=== PATIENT | female | born 1960 | race Caucasian/White ===

== ENCOUNTER 2016-07-10 07:50 | Day surgery (SDC) | payer OTHER ==
[2016-07-10] VITALS (10 sets, daily range): BP systolic 123–164; BP diastolic 60–102; PULSE 56–76; RESP 10–20; O2SAT 92–100
[~2016-07-10] VITALS: Ht 162.6 cm; Wt 99.0 kg
[~2016-07-10 07:50] MED LIST: CeFAZolin 2 Gm/50 mL D5W IV Premix IV ONE; LEVO50TA6 PO; Lactated Ringer's 1,000 ML IV SCH; NPR500T PO
[2016-07-10] MEDS ORDERED: Propofol 10,000 mCg/mL 20 mL Inj ONE (07:51)
[2016-07-10] MEDS ORDERED: fentaNYL-PF 50 mCg/mL 2 mL Inj ONE (07:51)
[2016-07-10] MEDS ORDERED: Dexamethasone 4 mg/mL Inj ONE (07:51)
[2016-07-10] MEDS ORDERED: Ondansetron 2 mg/mL 2 mL Inj ONE (07:51)
[2016-07-10] MEDS ORDERED: Lactated Ringer's 1,000 ML IV ONE (08:48)
--- NOTE | 2016-07-10 09:11 | PCM.HPANE ---
Patient Data Surgeon Admitting Provider: Attending Provider:Tylor Scott MD Primary Care Physician:Martha Anand PA-C Other Provider:Sharri Rodriguezingham Anesthesia Reason for Visit Right Knee Medial Meniscal Tear Ht/WT & BMI Height (Feet): 5 Height (Inches): 4.00 Weight (Kilograms): 99 Body Mass Index 37.00 Allergies Coded Allergies: codeine (Verified Adverse Reaction, Severe, Nausea,Vomiting, 07/05/16) morphine (Verified Adverse Reaction, Severe, Nausea,Vomiting, 07/05/16) oxycodone (Verified Adverse Reaction, Severe, Nausea,Vomiting, 07/05/16) Past Anesthesia History Anesthesia History: Positive for:: Anesthesia Reactions (PONV W/ NARCOTICS), Denies:: Malignant Hyperthermia Diabetes History Hx Diabetes?: No MRSA MRSA: No Medications Home Meds Incl Beta Kacey: No Reported Medications Naproxen 500 Mg [id number] Mg PO DAILY PRN For Pain Ref 0 07/05/16 Levothyroxine 50 Mcg [id number] Mcg PO DAILY Ref 0 02/14/16 Discontinued Reported Medications [Vit B12] No Conflict Check1 Gtt PO DAILY 02/14/16 Biotin/Calcium Carbonate (Biotin 800 Mcg Tablet)1 Each Tablet1 Each PO BID 02/14/16 Multivits,Ca,Minerals/Iron/FA (Women's Daily Formula Caplet)500-18-0.4 Tablet1 Each PO BID 02/14/16 History History of ENT Problems?: No HEENT History: Denies:: Sinus Problem Hx of Heart Problems?: Yes Cardiovascular History: Denies:: Chest Pain Heart Murmur Hypertension Pacemaker Rheumatic Fever Thrombophlebitis Other Cardiac History: HX OF ANEMIA (PROB. R/T MENORRHAGIA) Hx of Respiratory Problem?: No Respiratory History: Denies:: Asthma COPD Dyspnea Emphysema Hemoptysis Tuberculosis Use of C-PAP Machine Hx Neurologic Problems?: Yes Neurological History: Denies:: Alzheimer's Disease CVA Dementia Dizziness Headaches Seizures Hx of GI Problems?: Yes Gastrointestinal History: Denies:: Cirrhosis Diverticulitis Gastroesphageal Reflux Heartburn Hepatitis Rectal Bleeding Other GI Pertinent History: RECENT INTENTIONAL 60# WEIGHT LOSS Hx of Problems?: No Genitourinary History: Denies:: HX of Hemodialysis Kidney Stones Urinary Tract Infection Female Hx: Denies:: Currently Endometriosis Pelvic Inflammatory Problems with Breasts? Skin History: Denies:: History Skin Disorders? Pressure Ulcers Hx Musculoskeletal Problems?: Yes Musculoskeletal History: Positive for:: Musculoskeletal Trauma (RT KNEE MEDIAL MENISCUS TEAR=CURRENT PROBLEM) Denies:: Back Injury Joint Replacement Hx of Psycho/Social Problems?: No Psycho Social History: Denies:: Anxiety Bipolar Disorder Hx Depression Hx Surgeries?: Yes (HYST/BSO) Hx Any Other Health Problems?: Yes Other History: Positive for:: Cancer (UTERINE CA) Hospitalization Thyroid Disease Denies:: Endocrine Disease Hx Diabetes: No Hx Alcohol Use: YesHx Substance Use: No Smoking Status: Never Smoker Have You Smoked inLast 12 mo: No Stop/Bang S-Snoring: Do You Snore Loudly: No T-Tired: feel tired, fatigued: Yes O-Obsered: Observed not breath: No P-Blood Pressure: treated: No B- Body Mass Index > 35 kg/m2: Yes A- Age over 50: Yes N- Neck Large Circumference: Yes G- Gender Male: No SEEMA Total Score: 4 SEEMA Risk Assessment: High Risk, =/>3 Yes SEEMA Category 2: Yes Risk Assessment Category Category 1A: Patient has history of documented sleep apnea, and HAS NOT received any narcotic, sedative or anesthesia administration during this stay. Category 1B: Patient has history of documented sleep apnea, and HAS received any narcotic , sedative or anesthesia administration during this stay Category 2: Patient has SUSPECTED Obstructive Sleep Apnea, and HAS received any narcotic , sedative or anesthesia administration during this stay. Category 3: Patient has SUSPECTED Obstructive Sleep Apnea and HAS NOT received narcotic, sedative or anesthesia administration during this stay. Category 4: Outpatient in Procedural Areas with known sleep apnea or who screen positive for High Risk via the STOP/BANG questionnaire. Exam Exam Vital Signs Vital Signs Date Time Temp Pulse Resp B/P Pulse Ox O2 Delivery O2 Flow Rate FiO2 07/10/16 08:49 36.5 56 20 140/86 99 Room Air General Appearance: Alert, Oriented X3, Cooperative, No Acute Distress HEENT/AIRWAY: MP 2 Lungs: Clear to Auscultation, Normal Air Movement Heart: Exam Unremarkable, Regular Rate/Rhythm, No Murmurs/Rubs/Gallops Meds/Labs/Diagnostics Admission Meds Current Medications Lactated Ringer's (Lr) 1,000 ml @ ud STK-MED ONCE IV Last administered on 2/1/ 17at 08:48; Start 07/10/16 at 08:48; Stop 07/10/16 at 08:49; Status DC Plan Impression Patient chart reviewed, patient interviewed and anesthestic plan with risks, benefits, and alternatives discussed, and informed consent obtained. NPO Status: 07/09@1999 ASA Physical Status: ASA2 Mod Systemic Disease Anesthetic Plan: GA Bene/Risks/Altern/Consents: Yes HP Complete Prior to Induction: Yes Víctor Plascencia MD Jul 10, 2016 09:11
[2016-07-10] MEDS ORDERED: MethylprednisoLONE Depot 40 mg/mL Inj ARTICULAR ONE (10:17)
[2016-07-10] MEDS ORDERED: Lidocaine 2%-Epi 1:100,000 20 mL Inj INFILTRATE ONE (10:17)
[2016-07-10] MEDS ORDERED: Dexamethasone 4 mg/mL Inj IVPUSH PRN (10:35)
[2016-07-10] MEDS ORDERED: MetoCLOpramide 5 mg/mL 2 mL Inj IVPUSH PRN (10:35)
[2016-07-10] MEDS ORDERED: Ondansetron 2 mg/mL 2 mL Inj IVPUSH PRN (10:35)
[2016-07-10] MEDS ORDERED: Lactated Ringer's 500 ML IV PRN (10:35)
[2016-07-10] MEDS ORDERED: Atropine 0.4 mg/mL Inj IVPUSH PRN (10:35)
[2016-07-10] MEDS ORDERED: hydrALAZINE 20 mg/mL Inj IVPUSH PRN (10:35)
[2016-07-10] MEDS ORDERED: Lactated Ringer's 1,000 ML IV SCH (10:35)
[2016-07-10] MEDS ORDERED: EPHEDrine Sulfate 50 mg/mL Inj IVPUSH PRN (10:35)
[2016-07-10] MEDS ORDERED: HYDROmorphone 1 mg/mL Inj IVPUSH PRN (10:35)
[2016-07-10] MEDS ORDERED: Phenylephrine 10,000 mCg/mL Inj IVPUSH PRN (10:35)
[2016-07-10] MEDS ORDERED: fentaNYL-PF 50 mCg/mL 2 mL Inj IVPUSH PRN (10:35)
[2016-07-10] MEDS ORDERED: Labetalol 5 mg/mL 4 mL Inj IV PRN (10:35)
[2016-07-10] MEDS ORDERED: HYDROcodone-APAP 5-325 mg Tablet PO PRN (10:55)
--- NOTE | 2016-07-10 10:59 | PCM.ORTHOB ---
Immediate Operative Note Date of Service: Jul 10, 2016 Pre Operative Diagnosis Right knee degenerative medial meniscal tear Post Operative Diagnosis Same Procedure Right knee arthroscopic partial medial meniscectomy Surgeon Surgeon: Tylor Scott MD Assistants: None Findings Right knee medial compartment stable degenerative tear of the posterior horn of the medial meniscus. In their periphery tearing of the medial meniscal body. Degenerative changes on both sides of the joint with diffuse grade 3 chondromalacia affecting the majority of the weightbearing surface of the medial femoral condyle. Diffuse grade 2 chondromalacia affecting the majority of the weightbearing surface on the tibial side. The anterior cruciate ligament was intact and stable to probing. The lateral compartment was better preserved with an intact and normal appearing lateral meniscus which was stable to probing. Diffuse grade 1-2 chondromalacia affecting the majority of the weightbearing surface of the lateral femoral condyle. Diffuse grade 1 chondromalacia affecting the majority of the weightbearing surface on the tibial side. The medial and lateral gutters were free of loose bodies. The patellofemoral compartment was remarkable for diffuse grade 2-3 chondromalacia affecting the majority of the undersurface. Grafts, Implants: None Complications There were no periprocedural complications identified. Condition Stable Anesthetic Administered: GA Drains: None (I usually get a prescription) Catheters: None ( LCu) Output, Estimated Blood Loss: 2 Blood Admin during surgery: No Surgical Cast or Splint: None Additional Information Tourniquet time 20 minutes Surgical Specimen Removed: No Surgical Specimen sent to Path: No Post Operative Plan The patient will be discharged from daycare surgery with protocol is met. The patient may weight-bear as tolerated beginning postop day #1. The patient should resume her preoperative knee strengthening exercises as soon as possible. The patient will be seen for routine wound check on her after postop day #5. The patient may have her skin sutures removed on or after postoperative day #12. The patient should be able to resume light activities of daily living by that time. Tylor Scott MD Jul 10, 2016 10:59
--- NOTE | 2016-07-10 11:05 | PCM.ORTHOP ---
Orthopedic Operative Report Date of Service: Jul 10, 2016 Pre Operative Diagnosis Right knee degenerative medial meniscal tear Post Operative Diagnosis Same Procedure Right knee arthroscopic partial medial meniscectomy Surgeon Surgeon: Tylor Scott MD Assistants: None Indication for Procedure Patient is a 56-year-old woman with a four-month history of right knee pain primarily over the anteromedial aspect of her knee. Symptoms are worse with squatting, lunging, turning and twisting activities. The patient's symptoms are primarily activity related. Preoperative exam of the patient's right knee reveals the knee to be stable with mild loss of knee range of motion, tenderness to palpation of the medial joint line and a positive Billy test. Preoperative MRI of the patient's right knee is remarkable for an apparent degenerative tear in the posterior horn of the undersurface of the medial meniscus and mild tricompartmental degenerative changes. Patient has not gotten relief of her knee symptoms through activity modification, and appropriate attempt at knee rehabilitation and the use of anti-inflammatory agents. The patient presents for a temporizing right knee arthroscopic partial medial meniscectomy procedure. Findings Right knee medial compartment stable degenerative tear of the posterior horn of the medial meniscus. In their periphery tearing of the medial meniscal body. Degenerative changes on both sides of the joint with diffuse grade 3 chondromalacia affecting the majority of the weightbearing surface of the medial femoral condyle. Diffuse grade 2 chondromalacia affecting the majority of the weightbearing surface on the tibial side. The anterior cruciate ligament was intact and stable to probing. The lateral compartment was better preserved with an intact and normal appearing lateral meniscus which was stable to probing. Diffuse grade 1-2 chondromalacia affecting the majority of the weightbearing surface of the lateral femoral condyle. Diffuse grade 1 chondromalacia affecting the majority of the weightbearing surface on the tibial side. The medial and lateral gutters were free of loose bodies. The patellofemoral compartment was remarkable for diffuse grade 2-3 chondromalacia affecting the majority of the undersurface. Details of Procedure The patient was brought to the OR and given a general anesthetic. She is placed in the supine position and the tourniquet was placed high about the right thigh. The right lower extremity was prepped draped in usual sterile fashion. The tourniquet was inflated to 275 mmHg. We placed 2 infrapatellar portals, one medial and one lateral for the scope and instruments. We instilled lactated Ringer's with epinephrine and went directly to the medial compartment. We encountered advancing degenerative changes, primarily affecting the weightbearing surface of medial femoral condyle. We carefully examined the medial meniscus and found the undersurface of the posterior horn to be intact and stable to probing. We noted degenerative tearing and fraying of the inner periphery of the medial meniscal body. We used an arthroscopic shaver to debride the torn portion of the medial meniscus back to a stable base. We will see his D arthroscopic shaver to debride the more loose cartilaginous fragments from the medial femoral condyle and tibial articular surface. After we had performed our medial compartment partial medial meniscectomy and chondroplasty we explored the rest of the knee. We found the anterior cruciate ligament to be intact and stable to probing. The lateral compartment was better preserved with minimal degenerative changes primarily affecting the weightbearing surface of the lateral femoral condyle. The lateral meniscus was intact and stable to probing. We explored the medial and lateral gutters and found them to be free of loose bodies. The patellofemoral compartment was reviewed. We found advancing degenerative changes of the patellar undersurface and used our arthroscopic shaver to debride the more loose cartilaginous fragments from the patellar undersurface. Following our patellofemoral compartment chondroplasty we thoroughly irrigated the knee. We removed the scope and instruments and instilled 30 mL of 2% lidocaine with epinephrine and 40 mg of Depo-Medrol. The arthroscopic portals were closed with interrupted 4-0 nylon sutures. The wounds dressed with Xeroform and dry gauze dressings. The tourniquet was deflated and the patient was taken back to PACU in stable and satisfactory condition. There were no complications. The patient tolerated the procedure well. Grafts, Implants: None Complications There were no periprocedural complications identified. Condition Stable Anesthetic Administered: GA Drains: None (I usually get a prescription) Catheters: None ( LCu) Output, Estimated Blood Loss: 2 Blood Admin during surgery: No Surgical Cast or Splint: None Addtional Information Tourniquet time 20 minutes Surgical Specimen Removed: No Specimen sent to Pathology: No Post Operative Plan The patient will be discharged from daycare surgery with protocol is met. The patient may weight-bear as tolerated beginning postop day #1. The patient should resume her preoperative knee strengthening exercises as soon as possible. The patient will be seen for routine wound check on her after postop day #5. The patient may have her skin sutures removed on or after postoperative day #12. The patient should be able to resume light activities of daily living by that time. copies to: Martha Anand PA-C; Tylor Scott MD, Michael G.E MD Jul 10, 2016 11:05
--- NOTE | 2016-07-10 11:28 | PCM.ANEP1 ---
Post Anesthesia Phase 1 PACU Phase 1 Assessment Date of Service: Jul 10, 2016 Vital Signs Vital Signs Date Time Temp Pulse Resp B/P Pulse Ox O2 Delivery O2 Flow Rate FiO2 07/10/16 11:00 62 12 164/85 100 Room Air 07/10/16 10:55 65 13 162/79 99 Room Air 07/10/16 10:50 76 10 163/60 98 Room Air 07/10/16 10:47 36.3 64 11 123/82 92 Room Air 07/10/16 08:49 36.5 56 20 140/86 99 Room Air Anesthetic Administered: GA CRUZ's with Equal Strength: Yes Pain: No Nausea or Vomiting: No Oxygen Delivery: Room Air Lungs: Clear to Auscultation, Normal Air Movement Dermatome Level: Full Sensation Víctor Plascencia MD Jul 10, 2016 11:28
--- NOTE | 2016-07-10 11:50 | PCM.ANEP2 ---
Post Anesthesia Evaluation ASA/CMS Post Anesthesia VS in Patient's Normal Range?: Yes Resp Stable; Airway Patent?: Yes CV Function & Hydration Stable: Yes Mental Status Recovered?: Yes Pain control Satisfactory?: Yes N/V Control Satisfactory?: Yes Víctor Plascencia MD Jul 10, 2016 11:50
== END 2016-07-10 23:59 | disposition home or self-care (01) ==
LOC: SAS 07:50
PROVIDERS: ATTEND Orthopaedic Surgery
DX: M23.221 Derangement of posterior horn of medial meniscus due to old tear or injury, right knee (principal); M22.41 Chondromalacia patellae, right knee; M17.11 Unilateral primary osteoarthritis, right knee; E03.9 Hypothyroidism, unspecified
CPT/HCPCS: 29881; J0690; J1030; J1100; J2175; J2250; J2405; J3010; J7120

== ENCOUNTER 2016-07-16 09:46 | Emergency (ER) | payer OTHER ==
[~2016-07-16] VITALS: Ht 162.6 cm; Wt 96.4 kg
[~2016-07-16 09:46] MED LIST changes: -CeFAZolin 2 Gm/50 mL D5W IV Premix IV ONE; -Lactated Ringer's 1,000 ML IV SCH
[2016-07-16 09:57] VITALS: BP 127/88; PULSE 66; RESP 18; O2SAT 99
--- NOTE | 2016-07-16 10:05 | ED.REPORT ---
HPI-Extremity Problem Lower Date of Service Jul 16, 2016 ED Provider: Ty Darling MD The patient is a 56 year old female who was sent to the emergency department from [facility] orthopedics for right calf pain. She had a scope of her right knee on the , had a followup appt today and provider was concerned for DVT. The patient is ambulatory and did not notice pain until her appointment today. She denies history of blood clots. Nursing Notes Stated Complaint: LEG PAIN Chief Complaint: Extremity Trauma Nursing Notes Reviewed: Yes Allergies: Coded Allergies: codeine (Verified Adverse Reaction, Severe, Nausea,Vomiting, 07/05/16) morphine (Verified Adverse Reaction, Severe, Nausea,Vomiting, 07/05/16) oxycodone (Verified Adverse Reaction, Severe, Nausea,Vomiting, 07/05/16) Scheduled Levothyroxine (Levothyroxine) 50 Mcg Tablet 50 MCG PO DAILY Scheduled PRN Naproxen (Naproxen) 500 Mg Tab 500 MG PO DAILY PRN PRN For Pain General Time Seen by MD: 10:04 Chief Complaint Leg injury right Hx Obtained From: Patient Arrived By: Walk-in Onset Occurred: 3 days ago Symptom Duration: Since onset Location: : Leg right Quality: Painful Severity: Current: Mild Severity: Maximum: Moderate Recent Healthcare: No recent hospitalization, Recent doctor visit, Previous surgery (right knee surgery) Similar Sx Previous: No Past Medical History Past Surgical History Right knee surgery Family History Noncontributory Smoking History Never Smoker Social History Other Social History: Good social support, Local resident Ambulatory Status Independent Review of Systems Musculoskeletal: Reports: Extremity pain, Extremity swelling, Joint pain, Joint swelling Complete sys rev & neg: except as marked. Physical Exam Initial Vital Signs Vital Signs (First) Date Time Temp Pulse Resp B/P Pulse Ox O2 Delivery O2 Flow Rate FiO2 07/16/16 09:57 36.1 66 18 127/88 99 07/16/16 12:41 Room Air Initial VS: Reviewed General/Constitutional: Well-developed, Well-nourished Head / Eyes: Atraumatic, Normocephalic, PERRL ENT: Mucous membranes moist, Conjunctiva normal, No scleral icterus Neck: Supple, Non-tender, Full range of motion Respiratory: Breath sounds normal, Clear to auscultation, No respiratory distress Cardiovascular: Regular rate & rhythm, Heart sounds normal, Intact distal pulses Abdomen / GI: Soft, Non-tender, No guarding, No rebound, No distention Lymphatic: No lymphadenopathy Upper Extremities: Vascular intact, Neuro intact, No swelling, No tenderness Skin: Warm, Dry, No cyanosis Neurologic: Alert, Oriented, Nonfocal Psychiatric: Mood/affect normal, Behavior normal, Normal thought content Lower Extremity / Pelvis / MS: Neurologic intact, Vascular intact She has two well healing laparoscopic surgical incisions about her anterior knee. No surrounding erythema, redness, warmth, or any signs of infection. Her left calf is soft with no swelling or tenderness. Her right calf is soft without palpable cords or significant swelling. I am not able to detect any tenderness about her calf. Interpretation & Diagnostics Interpretation & Diagnostics: US negative for DVT Lab Results Interpretation Result Diagram: 07/16/16 1055 07/16/16 1055 Test 07/16/16 10:55 White Blood Count 9.1th/mm3 (3.8-10.1) Red Blood Count 4.95mil/mm3 (3.90-5.20) Hemoglobin 14.8g/dL (12.0-15.6) Hematocrit 44.5% (35.0-46.0) Mean Corpuscular Volume 89.9fL (81-100) Mean Corpuscular Hemoglobin 29.9pg (27.0-35.0) Mean Corpuscular Hemoglobin Concent 33.3% (32.0-37.0) Red Cell Distribution Width 13.6% (12.3-15.4) Platelet Count 274bil/L (150-400) Neutrophils (%) (Auto) 67.8% (40-74) Lymphocytes (%) (Auto) 19.4% (14-46) Monocytes (%) (Auto) 8.8% (4-12) Eosinophils (%) (Auto) 3.0% (0-5) Basophils (%) (Auto) 0.4% (0-3) Prothrombin Time 10.3sec (8.1-12.5) Prothromb Time International Ratio 0.96ratio Sodium Level 139mEq/L (134-144) Potassium Level 4.0mEq/L (3.5-5.2) Chloride Level 102mEq/L (97-108) Carbon Dioxide Level 24mmol/L (18-29) Blood Urea Nitrogen 21mg/dL (6-24) Creatinine 0.69mg/dL (0.57-1.00) Estimat Glomerular Filtration Rate 126mL/min (>59) Glucose Level 111mg/dL (60-99) Calcium Level 9.5mg/dL (8.5-10.1) Total Bilirubin 0.2mg/dL (0.0-1.2) Aspartate Amino Transf (AST/SGOT) 15U/L (0-50) Alanine Aminotransferase (ALT/SGPT) 16U/L (0-32) Alkaline Phosphatase 67U/L (25-150) Total Protein 8.0g/dL (6.4-8.4) Albumin 4.2g/dL (3.4-5.0) Hold Pandey Top Tube Received (Received) Re-Eval/Medical Decision Med Decision/Clinical Course In summary, the patient is a 56-year-old female without any history of DVT with recent arthroscopic right knee surgery who presents the emergency department from orthopedic clinic due to concern for DVT. Emergency department she is afebrile stable vital signs. Examination of the right knee demonstrate well healing arthroscopic surgical incisions without any evidence of septic arthritis, cellulitis or acute infectious process. She is neurovascularly intact in the affected extremity. My examination is relatively unconvincing for acute DVT. Workup performed as below US negative for DVT CBC unremarkable, CMP unremarkable Patient denied any other associated complaints or symptoms suggestive of pulmonary embolism. At this time workup is reassuring. I feel she is appropriate for discharge home. She will follow up as needed with her primary care doctor and orthopedic surgeon. Follow and return precautions were reviewed in detail and she was discharged in good condition. Source of Hx: Old records, Family Re-Evaluation/Progress #1: Time of Eval: 11:02 Re-Evaluation/Progress Note: Rechecked the patient. Re-Evaluation/Progress #2: Time of Eval: 12:32 Re-Evaluation/Progress Note: Discussed results, diagnosis, and plan for discharge. Counseled Regarding: Diagnosis, Lab results, Need for follow-up, When/why to return to ED Discharge & Departure Impression: Primary Impression: Right calf pain Additional Impression: History of arthroscopic knee surgery Ruled Out: DVT (deep venous thrombosis) Disposition: Home Discharge Condition All VS Reviewed: Yes Condition: Stable Additional Instructions: Thank you for seeking care at the emergency room. Your ultrasound today is reassuring. There is no evidence of a blood clot. Our primary goal today in the ED was to evaluate you for any life-threatening conditions. Your evaluation was reassuring. You should follow-up with your orthopedist as previously scheduled. You should return to the ED immediately if you develop increased pain, swelling , or redness, fevers, vomiting, shortness of breath, chest pain, lightheadedness , weakness or any other concerning signs or symptoms. Thank you for letting us partake in your care today. Referrals: Martha Anand PA-C (PCP) Tylor Scott MD Attestation Portions of this note were transcribed by Kelly Carter. I, Dr. Darling personally performed the history, physical exam and medical decision-making; I reviewed and confirmed the accuracy of the information in the transcribed note. Signed by: Niranjan Yarbrough, 07/16/2016 and 1240. copies to: Martha Anand PA-C; Tylor Scott MD, Beck O MD Jul 16, 2016 10:04 Kelly Carter Jul 16, 2016 10:45
[2016-07-16 11:09] LABS: BASOPHILS % (AUTO) 0.4 % (0-3); MONOCYTES % (AUTO) 8.8 % (4-12); Mean Corpuscular Hemoglobin 29.9 pg (27.0-35.0); Mean Corpuscular Volume 89.9 fL (81-100); NEUTROPHILS % (AUTO) 67.8 % (40-74); Platelet Count 274 bil/L (150-400)
[2016-07-16 11:21] LABS: INR 0.96 ratio
[2016-07-16 12:41] VITALS: BP 141/82; PULSE 64; RESP 15; O2SAT 98
--- NOTE | 2016-07-16 13:17 | DRSVH ---
PROCEDURE: US VEINOUS LEG DUPLEX UNILATERAL, RIGHT INDICATIONS: assess for dvt TECHNIQUE: Real-time imaging, as well as color and pulse Doppler interrogation, were performed of the lower extr emity deep veins from the inguinal ligament to the popliteal fossa. COMPARISON: None. FINDINGS: The deep veins are normally compressible, and free of intraluminal thrombus. Color and pu lse Doppler demonstrate normal phasic intraluminal flow. There is normal augmentation response to di stal compression maneuver. IMPRESSION: No deep venous thrombosis identified within the right lower extremity. Dictated by: Ricardo Woods [facility] Interpreted: Darío Chau MD on 07/16/2016 at 13:16 Transcribed by: KRISTINA on 07/16/2016 at 13:16 Approved by: Darío Chau M.D. on 07/16/2016 at 22:11
== END 2016-07-16 12:38 | disposition home or self-care (01) ==
LOC: SED 09:46
DX: M79.661 Pain in right lower leg (principal); Z98.890 Other specified postprocedural states; Z88.5 Allergy status to narcotic agent

== ENCOUNTER → 2017-03-05 | Day surgery (SDC) | payer OTHER ==
[~2017-03-05] VITALS: Ht 162.6 cm; Wt 98.1 kg
[2017-03-05] VITALS (12 sets, daily range): BP systolic 96–166; BP diastolic 57–101; PULSE 54–74; RESP 13–28; O2SAT 93–100
[~2017-03-05] MED LIST changes: +CeFAZolin 2 Gm/50 mL D5W Duplex Bag IV ONE; +CeFAZolin Inj 2 GM in IV Premix 1 EACH IV ONE; +EPHEDrine Sulfate 50 mg/mL Inj IVPUSH PRN; +HYDR-4003 PO; +HYDROcodone-APAP 5-325 mg Tablet PO PRN; +HYDROmorphone 0.5 mg/0.5 mL iSecure Syringe ONE; +Ketorolac 15 mg/mL Inj IVPUSH ONE; +LOVA20TA PO; +Lactated Ringer's 1,000 ML IV SCH; +Lactated Ringer's 500 ML IV PRN; -NPR500T PO; +Ondansetron 2 mg/mL 2 mL Inj IVPUSH PRN; +Phenylephrine 10,000 mCg/mL Inj IVPUSH PRN; +Ropivacaine-PF 0.5% 30 mL Inj INJ ONE; +fentaNYL-PF 50 mCg/mL 2 mL Inj IVPUSH PRN; +hydrOXYzine Pamoate 25 mg Capsule PO ONE
[2017-03-05] MEDS: Lactated Ringer's 1,000 ML IV SCH ×2 (11:19→14:00)
--- NOTE | 2017-03-05 14:03 | PCM.ORTHOP ---
Orthopedic Operative Report Date of Service: Mar 05, 2017 Pre Operative Diagnosis Right knee medial meniscus tear, chondromalacia Post Operative Diagnosis Right knee medial meniscus tear, lateral meniscus tear, chondromalacia, synovitis Procedure Right knee arthroscopy, partial medial meniscectomy, partial lateral meniscectomy, chondroplasty, partial synovectomy Surgeon Surgeon: Feroz Dwyer MD Assistants: None Indication for Procedure Right knee meniscus tear Findings Per dictation Details of Procedure INDICATIONS: Tere Pierre is 56-year-old female who has had a history of right knee pain. The patient has failed conservative management and has had persistent mechanical symptoms since her last surgery by Dr. Scott who is no longer here. X-rays show the tibiofemoral joints to be preserved with mild DJD. MRI was obtained which reveals medial meniscus tear. The patient has had persistent symptoms and is now brought to the operating room for arthroscopy. The risks, benefits, and alternatives of surgery were discussed with the patient. The risks included but were not limited to infection, bleeding, damage to vessels and nerves, loss of motion, continued pain, re-tear of the meniscus, deep venous thrombosis, and complications due to anesthesia including nerve injury, myocardial infarction, stroke, , etc. The patient stated understanding of the nature of the surgical procedure and gave written and verbal consent to proceed. PROCEDURE: The patient was brought to the operating room and placed supine on the operating room table. After the administration of general anesthesia the patient was placed in the supine position. Examination of the knee revealed no evident instability with a trace effusion. All prominences were padded with appropriately and neurovascular structures protected. The right knee was confirmed to be the appropriate site following surgical time out. The right lower extremity was examined under anesthesia. Range of motion was 0-135 degrees. There was no varus or valgus or anterior or posterior instability. The right lower extremity was then prepped and draped in the usual fashion. Sterile prep and drape was then undertaken of the knee. The knee joint was injected with 20 ccs of 1% Lidocaine, along with 3 ccs of 1 % lidocaine in the medial and lateral portal sites respectively. A standard anterolateral parapatellar stab wound was created. The knee joint was entered with a blunt- tipped obturator, followed by the 30-degree video arthroscope. An anteromedial portal was established under arthroscopic control. A routine arthroscopic survey was performed. The patellofemoral joint showed grade 2/3 chondromalacia which was debrided down to stable tissue with a shaver. The medial joint space was then entered. The articular surfaces showed grade 2/ 3 chondromalacia. A degenerative body medial meniscal tear was noted with a small flap. The shaver and the cutting instruments were inserted, and a debridement of the meniscus back to healthy tissue was then undertaken. The ACL and PCL were noted to be intact. The lateral joint space was then entered. The articular surfaces were intact with grade 2/3 chondromalacia. There was a degenerative tear to the inner aspect of the lateral meniscus. A combination of the shaver and cutting instruments were then inserted and a debridement of this tissue down to stable tissue was undertaken. Moderate synovitis was noted anteriorly in the medial and lateral compartment and debrided with a shaver. The knee was irrigated with an additional 2 liters of lactated Ringer's solution. Excess fluid was drained. The portals were closed with 3-0 nylon as well as xeroform. The knee was injected with 20 mL of 0.5% ropivacaine. A dry sterile dressing was applied, followed by an SHAYLEE hose, soft roll, and FILEMON bandage. The patient was awakened in the operating room and transported to the recovery room in satisfactory condition. The patient appeared to tolerate the procedure well. At the completion of surgery the patient had soft compartments , palpable pulses, and brisk capillary refill. There were no complications noted. Please keep dressing clean dry and intact. Do not remove dressing until follow- up in clinic. If the dressing become soaked, you may remove the outer gauze and placed Band-Aids on the wounds. You may weight-bear as tolerated and maintain motion of your knee by bending it daily. You will follow up in clinic in 10-14 days for suture removal, and placement of new Steri-Strips. You will follow-up with me in clinic, and we will start physical therapy if needed. You will follow-up with me at 6 weeks postop and 12 weeks postop and will be released after that if improved. Please keep the affected extremity elevated when possible. Please take aspirin as prescribed.You may use ice and/ or heat as needed for comfort. (preferably ice during the first 48-72 hours) Please feel free to call with any further questions, comments, and/or concerns. Grafts, Implants: None Complications There were no periprocedural complications identified. Condition Stable Anesthetic Administered: GA Catheters: None Output, Estimated Blood Loss: 5 Blood Admin during surgery: No Surgical Cast or Splint: Other Surgical Specimen Removed: No Specimen sent to Pathology: No copies to: Feroz Dwyer MD, Christopher L MD Mar 05, 2017 14:02
--- NOTE | 2017-03-05 14:29 | PCM.HPANE ---
Patient Data Date of Service: Mar 05, 2017 Surgeon Admitting Provider: Attending Provider:Feroz Dwyer MD Primary Care Physician:Martha Anand PA-C Other Provider:Ferdinand Rodriguez Anesthesia Reason for Visit Right Meniscal Tear Ht/WT & BMI Height (Feet): 5 Height (Inches): 4 Weight (Kilograms): 98.1 Body Mass Index 36.00 Allergies Coded Allergies: codeine (Verified Adverse Reaction, Severe, Nausea,Vomiting, 07/05/16) morphine (Verified Adverse Reaction, Severe, Nausea,Vomiting, 07/05/16) oxycodone (Verified Adverse Reaction, Severe, Nausea,Vomiting, 07/05/16) Past Anesthesia History Anesthesia History: Positive for:: Anesthesia Reactions (ponv, shaking in PACU) , Denies:: Abnormal Airway, Difficult Intubation, Fam Anesthesia Reaction, Malignant Hyperthermia Diabetes History Hx Diabetes?: No MRSA MRSA: No Medications Hypertension Medication: No Home Meds Incl Beta Kacey: No Reported Medications Lovastatin 20 Mg [id number] Mg PO HS #30 TABLET Ref 0 02/25/17 Levothyroxine 50 Mcg [id number] Mcg PO DAILY Ref 0 02/25/17 Hydrocodone-Acetaminophen 5-325 mg 1 Each Tablet1 Tablet PO Q6H PRN For Pain Ref 0 02/25/17 History History of ENT Problems?: No HEENT History: Denies:: Abnormal Airway Cataracts Difficult Intubation Dysphagia Glaucoma Hearing Problem Sinus Problem TMJ Denture Type: None Teeth Condition: Missing Teeth Hx of Heart Problems?: No Cardiovascular History: Denies:: Abdominal Aortic Aneurism Atrial Fibrillation Chest Pain Edema Heart Murmur Hypertension Pacemaker Rheumatic Fever Thrombophlebitis Hx of Respiratory Problem?: Yes Respiratory History: Denies:: Asthma COPD Dyspnea Emphysema Hemoptysis Oxygen Administration Tuberculosis Use of C-PAP Machine (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 Skin History: Denies:: History Skin Disorders? Pressure Ulcers Hx Musculoskeletal Problems?: Yes Musculoskeletal History: Positive for:: Musculoskeletal Trauma (right knee current admission problem, prior surg 06/2016) Osteoarthritis Denies:: Back Injury (sees chiropractor occasionally) Fibromyalgia Joint Replacement Hx of Psycho/Social Problems?: No Psycho Social History: Denies:: Anxiety Bipolar Disorder Hx Depression Hx Surgeries?: Yes (HYST/BSO) Hx Any Other Health Problems?: Yes Other History: Positive for:: Cancer (uterine) Hospitalization Thyroid Disease Denies:: Endocrine Disease History Blood Transfusions: Positive for:: Accept Blood Products? Denies:: Blood Transfusions Hx Diabetes: No Hx Alcohol Use: YesHx Substance Use: No Smoking Status: Never Smoker Have You Smoked inLast 12 mo: No Stop/Bang Treated for Sleep Apnea?: Yes Do You Have a CPAP Machine?: No P-Blood Pressure: treated: No B- Body Mass Index > 35 kg/m2: Yes A- Age over 50: Yes N- Neck Large Circumference: No G- Gender Male: No SEEMA Category 4 OutPt Procedure: Yes Risk Assessment Category Category 1A: Patient has history of documented sleep apnea, and HAS NOT received any narcotic, sedative or anesthesia administration during this stay. Category 1B: Patient has history of documented sleep apnea, and HAS received any narcotic , sedative or anesthesia administration during this stay Category 2: Patient has SUSPECTED Obstructive Sleep Apnea, and HAS received any narcotic , sedative or anesthesia administration during this stay. Category 3: Patient has SUSPECTED Obstructive Sleep Apnea and HAS NOT received narcotic, sedative or anesthesia administration during this stay. Category 4: Outpatient in Procedural Areas with known sleep apnea or who screen positive for High Risk via the STOP/BANG questionnaire. Exam Exam Vital Signs Vital Signs Date Time Temp Pulse Resp B/P Pulse Ox O2 Delivery O2 Flow Rate FiO2 03/05/17 11:20 36.3 57 17 147/76 97 Room Air General Appearance: Alert, Oriented X3, Cooperative, No Acute Distress HEENT/AIRWAY: MP 2 Lungs: Clear to Auscultation, Normal Air Movement Heart: Exam Unremarkable, Regular Rate/Rhythm, No Murmurs/Rubs/Gallops Meds/Labs/Diagnostics Admission Meds Current Medications Lactated Ringer's (Lr) 1,000 ml @ 120 mls/hr [id number] IV Last administered on t 11:19; Start 03/05/17 at 05:00; Stop 03/05/17 at 13:19; Status DC Plan Impression Patient chart reviewed, patient interviewed and anesthestic plan with risks, benefits, and alternatives discussed, and informed consent obtained. NPO per Anesth. Guidelines: Yes ASA Physical Status: ASA2 Mod Systemic Disease Anesthetic Plan: GA Bene/Risks/Altern/Consents: Yes HP Complete Prior to Induction: Yes Tylor Gregg MD Mar 05, 2017 14:29
[2017-03-05] MEDS: fentaNYL-PF 50 mCg/mL 2 mL Inj ONE ×2 (15:42→15:55)
[2017-03-05] MEDS: HYDROmorphone 1 mg/mL Inj IVPUSH PRN ×2 (16:25→16:35)
--- NOTE | 2017-03-05 17:04 | PCM.ANEP1 ---
Post Anesthesia PACU Phase 1 Assessment Date of Service: Mar 05, 2017 Vital Signs Vital Signs Date Time Temp Pulse Resp B/P Pulse Ox O2 Delivery O2 Flow Rate FiO2 03/05/17 16:25 74 25 133/91 100 Nasal Cannula 3 03/05/17 16:12 68 28 96/57 100 Nasal Cannula 03/05/17 16:06 63 22 166/81 100 Nasal Cannula 2 03/05/17 15:57 54 22 133/70 100 Nasal Cannula 2 03/05/17 15:50 57 26 133/72 100 Nasal Cannula 2 03/05/17 15:40 62 14 117/101 100 Nasal Cannula 2 03/05/17 15:31 35.6 61 13 164/93 100 Nasal Cannula 4 03/05/17 11:20 36.3 57 17 147/76 97 Room Air Anesthetic Administered: GA Level of Alertness: Awake, talking Pain: Yes Pain Scale Score: 5 Nausea or Vomiting: No CV Function & Hydration Stable: Yes Airway Device: Oxygen Delivery: Room Air Lungs: Clear to Auscultation, Normal Air Movement PACU Phase 2 Assessment Complications: No Follow up Care: No Patient Instructions Provided: N/A Comments Tremulous and painful as more wakeful, dose of meperidine. toradol, and titrating opioids for analgesia. Tylor Gregg MD Mar 05, 2017 17:04
[2017-03-05] MEDS: MetoCLOpramide 5 mg/mL 2 mL Inj IVPUSH PRN ×2 (17:37→18:29)
== END | disposition home or self-care (01) ==
LOC: SAS 11:00
PROVIDERS: ATTEND Orthopaedic Surgery
DX: S83.241A Other tear of medial meniscus, current injury, right knee, initial encounter (principal); S83.281A Other tear of lateral meniscus, current injury, right knee, initial encounter; M94.261 Chondromalacia, right knee; M65.861 Other synovitis and tenosynovitis, right lower leg; M25.361 Other instability, right knee; M17.31 Unilateral post-traumatic osteoarthritis, right knee; M76.821 Posterior tibial tendinitis, right leg; E03.9 Hypothyroidism, unspecified
CPT/HCPCS: 29880; J0690; J1170; J1885; J2175; J2405; J2765; J2795; J3010; J7120; Q0177